=== PATIENT | male | born 1985 ===

== ENCOUNTER 2017-08-27 16:18 | Inpatient (IN) | payer OTHER ==
[2017-08-27] MEDS ORDERED: HYDROmorphone 1 MG/ML Syringe IVPUSH ONE ×3 (16:41→20:20)
[2017-08-27] MEDS ORDERED: Sodium Chloride 0.9% 10 ML Syringe FLUSH PRN (16:41)
--- NOTE | 2017-08-27 16:43 | EDM.PDOC ---
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 Injury occurred about 2 hours prior to arrival ER. Patient reports that he is working on [employer]. This occurred at work. He estimates he fell approximately 10 feet. Currently complaining of pain to the left lateral chest and left upper back. States he has difficulty breathing and pain with deep respirations. No head trauma. He was wearing a hard hat at the time. No syncope, vision changes, nausea, vomiting, neck pain, dizziness or lightheadedness. No pain to the arms or legs. Onset: Today Location: Reports: Chest, Abdomen. Denies: Head, Neck Left Thoracic Pain Score (Numeric/FACES): 10 - Related Data Allergies Allergy/AdvReac Type Severity Reaction Status Date / Time No Known Allergies Allergy Verified 08/27/17 16:29 Home Meds: Home Meds . [No Known Home Meds] 08/27/17 [History] Past Medical History - Past Surgical History Musculoskeletal Surgical History: Reports: Shoulder Surgery Social & Family History - Tobacco Use Smoking Status *Q: Current Every Day Smoker Years of Tobacco use: 10 Packs/Tins Daily: 0.5 - Caffeine Use Caffeine Use: Reports: None - Recreational Drug Use Recreational Drug Use: No ED ROS GENERAL - Review of Systems Review Of Systems: See Below HEENT: Denies: Vision Change Respiratory: Reports: Shortness of Breath Cardiovascular: Reports: Chest Pain (left lateral chest) GI/Abdominal: Reports: Abdominal Pain (left upper abdmone). Denies: Nausea, Vomiting Musculoskeletal: Reports: Back Pain. Denies: Neck Pain, Arm Pain, Leg Pain Skin: Denies: Bruising, Wound Neurological: Denies: Headache, Syncope ED EXAM, GENERAL - Physical Exam Exam: See Below Exam Limited By: No Limitations General Appearance: Alert, WD/WN, Mild Distress Eye Exam: Bilateral Eye: PERRL Ears: Normal External Exam Nose: Normal Inspection Throat/Mouth: Normal Inspection, Normal Lips, Normal Voice, No Airway Compromise Head: Atraumatic, Normocephalic Neck: Normal Inspection, Supple, Non-Tender, Full Range of Motion Respiratory/Chest: Decreased Breath Sounds (left lower lung base), Splinting Cardiovascular: Normal Peripheral Pulses, Regular Rate, Rhythm, No Murmur GI/Abdominal: Soft, Tender (LUQ) Extremities: Normal Inspection, Normal Range of Motion Neurological: Alert, Oriented, Normal Cognition, Normal Gait Psychiatric: Normal Affect, Normal Mood Skin Exam: Warm, Dry, Normal Color. No: Ecchymosis, Wound/Incision EKG INTERPRETATION EKG Date: 08/27/17 Time: 18:05 Rhythm: NSR Rate (Beats/Min): 74 [place]: Normal P-Wave: Present QRS: Normal ST-T: Normal QT: Normal EKG Interpretation Comments: NSR at [address] elevation in V2 and II bengin early repolarization pattern. Reviewed by myself and Dr. Oreilly. Course - Vital Signs Last Recorded V/S: Last Vital Signs Temp 37.2 C 08/27/17 21:11 Pulse 68 08/27/17 21:11 Resp 16 08/27/17 21:11 BP 128/75 08/27/17 21:11 Pulse Ox 95 08/27/17 21:11 - Orders/Labs/Meds Orders: Active Orders 24 hr Category Date Time Status EKG 12 Lead [EKG Documentation Completion] [RC] STAT Care 08/27/17 17:52 Active Peripheral IV Care [RC] Q2HR Care 08/27/17 16:41 Active Chest Abdomen Pelvis w Cont [CT] Stat Exams 08/27/17 16:41 Taken Sodium Chloride 0.9% [Saline Flush] Med 08/27/17 16:41 Active 10 ml FLUSH ASDIRECTED PRN Peripheral IV Insertion Adult [OM.PC] Routine Oth 08/27/17 16:40 Ordered Medication Orders Hydromorphone HCl (Dilaudid) 0.5 mg IVPUSH Q1H PRN PRN Reason: Pain Last Admin: 08/27/17 22:56 Dose: 0.5 mg Admin: 08/27/17 21:40 Dose: 0.5 mg Dextrose/Lactated Ringer's (Dextrose 5%-Lactated Ringers) 1,000 mls @ 100 mls/ hr IV ASDIRECTED RUFINA Last Admin: 08/27/17 21:39 Dose: 100 mls/hr Sodium Chloride (Saline Flush) 10 ml FLUSH ASDIRECTED PRN PRN Reason: Keep Vein Open Last Admin: 08/27/17 16:54 Dose: 10 ml Labs: Laboratory Tests 08/27/17 08/27/17 08/27/17 Range/Units 16:50 16:50 16:50 WBC 16.33 H (4.23-9.07) K/mm3 RBC 4.97 (4.63-6.08) M/mm3 Hgb 14.5 (13.7-17.5) gm/L Hct 44.0 (40.1-51.0) % MCV 88.5 (79.0-92.2) fl MCH 29.2 (25.7-32.2) pg MCHC 33.0 (32.2-35.5) g/dl RDW Std Deviation 44.2 H (35.1-43.9) fL Plt Count 291 (163-337) K/mm3 MPV 9.9 (9.4-12.3) fl Neut % (Auto) 78.9 H (34.0-67.9) % Lymph % (Auto) 11.2 L (21.8-53.1) % [place] % (Auto) 9.1 (5.3-12.2) % Eos % (Auto) 0.2 L (0.8-7.0) Baso % (Auto) 0.2 (0.1-1.2) % Neut # (Auto) 12.89 H (1.78-5.38) K/mm3 Lymph # (Auto) 1.83 (1.32-3.57) K/mm3 [place] # (Auto) 1.49 H (0.30-0.82) K/mm3 Eos # (Auto) 0.03 L (0.04-0.54) K/mm3 Baso # (Auto) 0.03 (0.01-0.08) K/mm3 PT 10.0 (8.0-13.0) SECONDS INR 0.92 APTT 22 (22-36) SECONDS Sodium 137 (136-145) mEq/L Potassium 3.7 (3.5-5.1) mEq/L Chloride 102 (98-107) mEq/L Carbon Dioxide 25 (21-32) mEq/L Anion Gap 13.7 (5-15) BUN 20 H (7-18) mg/dL Creatinine 1.2 (0.7-1.3) mg/dL Est Cr Clr Drug Dosing 103.70 mL/min Estimated GFR (MDRD) > 60 (>60) mL/min BUN/Creatinine Ratio 16.7 (14-18) Glucose 121 H (74-106) mg/dL Calcium 9.6 (8.5-10.1) mg/dL Total Bilirubin 0.6 (0.2-1.0) mg/dL AST 38 H (15-37) U/L ALT 59 (16-63) U/L Alkaline Phosphatase 61 (46-116) U/L Total Protein 8.4 H (6.4-8.2) g/dl Albumin 4.3 (3.4-5.0) g/dl Globulin 4.1 gm/dL Albumin/Globulin Ratio 1.1 (1-2) Lipase 145 (73-393) U/L Urine Color (Yellow) Urine Appearance (Clear) Urine pH (5.0-8.0) Ur Specific [place] (1.005-1.030) Urine Protein (Negative) Urine Glucose (UA) (Negative) Urine Ketones (Negative) Urine Occult Blood (Negative) Urine Nitrite (Negative) Urine Bilirubin (Negative) Urine Urobilinogen (0.2-1.0) Ur Leukocyte Esterase (Negative) 08/27/17 Range/Units 18:30 WBC (4.23-9.07) K/mm3 RBC (4.63-6.08) M/mm3 Hgb (13.7-17.5) gm/L Hct (40.1-51.0) % MCV (79.0-92.2) fl MCH (25.7-32.2) pg MCHC (32.2-35.5) g/dl RDW Std Deviation (35.1-43.9) fL Plt Count (163-337) K/mm3 MPV (9.4-12.3) fl Neut % (Auto) (34.0-67.9) % Lymph % (Auto) (21.8-53.1) % [place] % (Auto) (5.3-12.2) % Eos % (Auto) (0.8-7.0) Baso % (Auto) (0.1-1.2) % Neut # (Auto) (1.78-5.38) K/mm3 Lymph # (Auto) (1.32-3.57) K/mm3 [place] # (Auto) (0.30-0.82) K/mm3 Eos # (Auto) (0.04-0.54) K/mm3 Baso # (Auto) (0.01-0.08) K/mm3 PT (8.0-13.0) SECONDS INR APTT (22-36) SECONDS Sodium (136-145) mEq/L Potassium (3.5-5.1) mEq/L Chloride (98-107) mEq/L Carbon Dioxide (21-32) mEq/L Anion Gap (5-15) BUN (7-18) mg/dL Creatinine (0.7-1.3) mg/dL Est Cr Clr Drug Dosing mL/min Estimated GFR (MDRD) (>60) mL/min BUN/Creatinine Ratio (14-18) Glucose (74-106) mg/dL Calcium (8.5-10.1) mg/dL Total Bilirubin (0.2-1.0) mg/dL AST (15-37) U/L ALT (16-63) U/L Alkaline Phosphatase (46-116) U/L Total Protein (6.4-8.2) g/dl Albumin (3.4-5.0) g/dl Globulin gm/dL Albumin/Globulin Ratio (1-2) Lipase (73-393) U/L Urine Color Yellow (Yellow) Urine Appearance Clear (Clear) Urine pH 5.5 (5.0-8.0) Ur Specific [place] 1.020 (1.005-1.030) Urine Protein Negative (Negative) Urine Glucose (UA) Negative (Negative) Urine Ketones Negative (Negative) Urine Occult Blood Negative (Negative) Urine Nitrite Negative (Negative) Urine Bilirubin Negative (Negative) Urine Urobilinogen 0.2 (0.2-1.0) Ur Leukocyte Esterase Negative (Negative) Meds: Medications Generic Name Dose Route Start Last Admin Trade Name Freq PRN Reason Stop Dose Admin Hydromorphone HCl 0.5 mg 08/27/17 21:31 08/27/17 22:56 Dilaudid IVPUSH 0.5 mg Q1H PRN Administration Pain Dextrose/Lactated Ringer's 1,000 mls @ 100 mls/hr 08/27/17 20:45 08/27/17 21: 39 Dextrose 5%-Lactated Ringers IV 100 mls/hr ASDIRECTED RUFINA Administration Sodium Chloride 10 ml 08/27/17 16:41 08/27/17 16:54 Saline Flush FLUSH 10 ml ASDIRECTED PRN Administration Keep Vein Open Discontinued Medications Generic Name Dose Route Start Last Admin Trade Name Freq PRN Reason Stop Dose Admin Hydromorphone HCl 1 mg 08/27/17 16:41 08/27/17 16:53 Dilaudid IVPUSH 08/27/17 16:42 1 mg ONETIME ONE Administration Hydromorphone HCl 1 mg 08/27/17 18:53 08/27/17 19:02 Dilaudid IVPUSH 08/27/17 18:54 1 mg ONETIME ONE Administration Hydromorphone HCl 0.5 mg 08/27/17 20:20 08/27/17 20:23 Dilaudid IVPUSH 08/27/17 20:21 0.5 mg ONETIME ONE Administration Hydromorphone HCl 1 mg 08/27/17 20:40 Dilaudid IVPUSH Q2H PRN Pain Hydromorphone HCl Confirm 08/27/17 21:35 08/27/17 21:45 Dilaudid Administered 08/27/17 21:36 Not Given Dose 0.5 mg .ROUTE .STK-MED ONE Iopamidol 125 ml 08/27/17 16:46 08/27/17 17:11 Isovue-300 (61%) IVPUSH 08/27/17 16:47 125 ml ONETIME ONE Administration Sodium Chloride 10 ml 08/27/17 16:46 08/27/17 17:12 Saline Flush FLUSH 08/27/17 16:47 10 ml ONETIME ONE Administration - Radiology Interpretation Free Text/Narrative:: CT of the chest with IV contrast impression per vrad: 1. 1. Moderate sized left hemopneumothorax measuring 12 mm 2. Atelectasis/contusion of the posterior lateral lingula and portions of the left lower lobe. 3. Nondisplaced fractures of the left seventh through ninth ribs. Segmental fractures of the left ribs [address] of the abdomen with IV contrast impression per vrad: no acute intraabdominal findings. CT Results Date: 08/27/17 - Re-Assessments/Exams Free Text/Narrative Re-Assessment/Exam: 08/27/17 20:[address] and lab results with the patient. I spoke with our surgeon ent surgeon Dr. Galvez. Recommended a higher level of care. Discussed with the patient. Did not have a preference, [place] or [facility] in [place]. Discussed the case with Dr. Harrison, ER physician, and Dr. Frias, surgeon, at [facility]. Did not feel a transfer was necessary. [place] the patient could be safely managed here in [place]. I had Dr. Oreilly come and evaluate the patient. Agrees patient needs admission. Agrees no chest tube is indicated at this time. Dr. Oreilly spoke with Dr. Galvez. Dr. Galvez has agreed to come and see the patient in the eR. Will plan on admitting the patient here. Departure - Departure Time of Disposition: 20:35 Disposition: Admitted As Inpatient 66 Condition: Serious Clinical Impression: Ribs, multiple fractures, Hemopneumothorax on left, Left pulmonary contusion - Discharge Information - My Orders Last 24 Hours: My Active Orders 08/27/17 16:40 Peripheral IV Insertion Adult [OM.PC] Routine 08/27/17 16:41 Peripheral IV Care [RC] Q2HR Chest Abdomen Pelvis w Cont [CT] Stat Sodium Chloride 0.9% [Saline Flush] 10 ml FLUSH ASDIRECTED PRN 08/27/17 17:52 EKG 12 Lead [EKG Documentation Completion] [RC] STAT - Assessment/Plan Last 24 Hours: My Active Orders 08/27/17 16:40 Peripheral IV Insertion Adult [OM.PC] Routine 08/27/17 16:41 Peripheral IV Care [RC] Q2HR Chest Abdomen Pelvis w Cont [CT] Stat Sodium Chloride 0.9% [Saline Flush] 10 ml FLUSH ASDIRECTED PRN 08/27/17 17:52 EKG 12 Lead [EKG Documentation Completion] [RC] STAT
[2017-08-27] MEDS ORDERED: Sodium Chloride 0.9% 10 ML Syringe FLUSH ONE (16:46)
[2017-08-27] MEDS ORDERED: Iopamidol 612 MG/ML 150 ML Bottle IVPUSH ONE (16:46)
[2017-08-27] MEDS ORDERED: HYDROmorphone 1 MG/ML Syringe IVPUSH PRN (20:40)
[2017-08-27] MEDS ORDERED: HYDROmorphone 0.5 MG/0.5 ML Syringe ONE (21:35)
[2017-08-27] MEDS: Dextrose 5%-Lactated Ringers 1,000 ML IV SCH (21:39)
[2017-08-27] MEDS: HYDROmorphone 0.5 MG/0.5 ML Syringe IVPUSH PRN ×2 (21:40→22:56)
[2017-08-28] MEDS: HYDROmorphone 0.5 MG/0.5 ML Syringe IVPUSH PRN ×15 (00:18→22:49)
[2017-08-28] MEDS: Dextrose 5%-Lactated Ringers 1,000 ML IV SCH ×2 (06:41→17:30)
[2017-08-28] MEDS: Ketorolac 30 MG/ML SDV IVPUSH SCH ×3 (06:43→18:57)
[2017-08-28] MEDS ORDERED: Pneumococcal Polyvalent-23 Vaccine 0.5 ML SDV IM ONE (08:34)
--- NOTE | 2017-08-28 08:51 | CR ---
Chest: Portable view of the chest was obtained. Comparison: Previous chest CT performed on 08/27/17. Chest CT showed a small pneumothorax on the left side. Small apical pneumothorax seen on current study on the left side. This is felt to be fairly stable from chest CT. Plate and screws noted affixing old right clavicle fracture. Minimal atelectasis is noted within the left lung base. Heart is slightly enlarged. Impression: 1. Small left apical pneumothorax is seen felt to be stable from prior chest CT. 2. Slight left basilar atelectasis and other incidental findings. Diagnostic code #3
[2017-08-28] MEDS ORDERED: Magnesium Hydroxide 400 MG/5 ML Susp 30 ML Cup PO PRN (19:30)
[2017-08-28] MEDS ORDERED: Bisacodyl 10 MG Supp RECTAL PRN (19:32)
--- NOTE | 2017-08-28 22:34 | HP ---
DATE OF ADMISSION: 08/27/2017 CHIEF COMPLAINT: Fall approximately 10 feet from scaffolding in the [employer]. HISTORY OF PRESENT ILLNESS: This 31-year-old male was brought to the emergency room actually in a pickup truck following a fall from approximately 10 feet. 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 He denies any loss of consciousness. Some bystanders quickly got him off the ground and got him into a pickup truck when he realized he was in lot of pain and brought him into the emergency room. The patient states that the fall was somewhat around 10 feet, which is essentially a trigger for the ATLS major trauma situations and the thought of transfer was entertained. However, as he was essentially seen in the emergency room and resuscitated with IV fluids and pain medication, it became apparent that his injuries were at that point not that severe. He did not evidently need transfer to a Trauma Center. The patient's complaints were that he did not have any pain in his head or neck. He did have pain in his left arm and his left chest, and most of his pain was posteriorly in the left chest. He denies any abdominal pain or any other long extremity pain. A CT scan of chest,abd, and pelvis was performed on the basis of his major trauma history, and this revealed no evidence in the lower neck of any fracture dislocation. The chest on the right side was perfectly normal. On the left, there are a small pneumothorax of minimal mL and a small amount of blood. There is also some contusion of the left lung. Abdominal CT is essentially perfectly normal. It is of interest to note that he does have a very obvious fracture of the midportion of the 7th rib laterally on the left side. The other fractures, etc., are not available since there has not been a dictation of the CT scans at this point. His abdominal CT was essentially unremarkable. Spleen was remarkably unscathed and the kidneys etc., and major vessels appear to be normal and small bowel and large bowel appear to be normal. No evidence of any bleeding intraperitoneally. Following evaluation and examination, the patient will be admitted to the hospital and I feel probably overnight because of the possibility of the enlargement of the pneumothorax, which is still quite fresh and development of other more problematic symptoms. ALLERGIES: He has no known allergies. CURRENT MEDICATIONS: He takes no medications. PAST MEDICAL HISTORY: General health has been good. PAST SURGICAL HISTORY: He has had a previous surgery on the right clavicle, and the hardware is visible on the chest x-ray. REVIEW OF SYSTEMS: Basically unremarkable and noncontributory, except for the pain, etc. He has no chronic illness. PHYSICAL EXAMINATION: GENERAL: Reveals a surprisingly alert, but obviously in pain patient. HEENT: Examination of the head and scalp does not reveal any injury or injury to the scalp or to the head. No hematomas. Eyes, ears, nose, and throat are within normal limits. No sign of any bleeding or limited function. Extraocular movements are satisfactory. NECK: Supple. He can move it in all directions. There is no swelling or crepitus. CHEST: Clear to auscultation. Breath sounds on the left are decreased. Right, the breath sounds are normal. HEART: Regular rhythm and no murmurs are heard. ABDOMEN: Soft with no tenderness and normal bowel sounds are present. GENITALIA: Unremarkable. No sign of any trauma. EXTREMITIES: Examination of his legs reveals full range of motion of the hip joints and knees with no pain, and he has good strength in all major muscle groups. NEUROLOGIC: He is alert and oriented to time, person, and place and has essentially normal neurologic examination to gross exam. ASSESSMENT: 1. At this point is fall, approximately 10 feet from a scaffolding or metallic ladder. 2. Fractured left ribs. 3. Hemopneumothorax. PLAN: The patient will be admitted for observation and further workup. His white count is slightly elevated. His hemoglobin is good and 14.7. He has basically a normal differential, his chemistries are fine. He will be admitted to the intensive care unit at least overnight. AAYUSH /[id number] JOSÉ MIGUEL
[2017-08-29] MEDS: Ketorolac 30 MG/ML SDV IVPUSH SCH ×4 (00:07→19:26)
[2017-08-29] MEDS: HYDROmorphone 0.5 MG/0.5 ML Syringe IVPUSH PRN ×3 (02:30→09:55)
[2017-08-29] MEDS: Dextrose 5%-Lactated Ringers 1,000 ML IV SCH (03:46)
[2017-08-29] MEDS: Polyethylene Glycol 3350 Powder 17 GM Packet PO SCH (11:31)
--- NOTE | 2017-08-29 11:43 | CR ---
Left elbow: 2 views of the left elbow were obtained. Comparison: No previous study. Joint spaces are preserved. No fracture or other abnormality is seen. Impression: 1. No abnormality is identified on 2 view left elbow study. Diagnostic code #1
--- NOTE | 2017-08-29 11:43 | CR ---
Chest: Portable view of the chest was obtained. Comparison: Previous chest x-ray 08/28/17. Slight atelectasis within the left lung base is noted. Lungs otherwise are clear. Small left apical pneumothorax is seen which is felt to be stable from previous exam. Heart size and mediastinum are within normal limits. Plate and screws are seen within the right clavicle. Impression: 1. Slight left basilar atelectasis. 2. Slight left apical pneumothorax similar to prior chest x-ray. 3. Other incidental findings. Diagnostic code #3
[2017-08-29] MEDS: Acetaminophen/oxyCODONE 325-5 MG Tab PO PRN ×3 (12:03→20:30)
--- NOTE | 2017-08-29 12:51 | CT ---
CT chest Technique: Multiple axial sections through the chest are obtained. Intravenous contrast was utilized. Comparison: No previous chest imaging. Findings: Mediastinum and hilar regions appear within normal limits. No pericardial thickening is seen. Small left sided pneumothorax is seen. Minimal atelectasis seen posteriorly within the left lung. Lungs otherwise are clear. Fractures are seen within the seventh and eighth ribs laterally. Small amount of chest wall air is seen in this area of fractures. No additional rib fracture is appreciated. Thoracic spine shows the vertebral body heights to be maintained on the sagittal images. Impression: 1. Small left-sided pneumothorax. Two left-sided rib fractures. Small amount of air within the chest wall at the level of the 2 left-sided rib fractures. 2. Mild atelectasis seen posteriorly within the left lung base. 3. No additional abnormality identified on CT study of the chest. Diagnostic code #5 I agree with preliminary report issued by [facility] ([facility] report finalized on 08/27/17, 6:42 PM Central Time) CT abdomen and pelvis Technique: Multiple axial sections were obtained from above the dome of the diaphragm inferiorly through the pubic symphysis. Intravenous contrast was utilized. No oral contrast has been given. Comparison: No previous abdominal imaging. Findings: Liver shows no focal parenchymal abnormality. Spleen appears within normal limits. Gallbladder shows no calcified gallstones. Adrenal glands show no nodule. Kidneys show symmetric contrast enhancement without hydronephrosis or mass. Pancreas appears within normal limits. Aorta shows no aneurysmal dilatation. No retroperitoneal adenopathy is seen. No pelvic mass or adenopathy is identified. Delayed images show contrast within the distal ureters and within the bladder. No free fluid or inflammatory change is seen within the abdomen or within the pelvis. Appendix is seen which is normal. Bone window settings were reviewed which show the vertebral body heights to be maintained within the lumbar spine. Impression: 1. Nothing acute is identified on CT study of the abdomen and pelvis. Diagnostic code #1 I agree with preliminary report issued by [facility] ([facility] report finalized on 08/27/17, 6:42 PM Central Time)
[2017-08-29] MEDS ORDERED: Cyclobenzaprine 10 MG Tab PO PRN (17:45)
[2017-08-29] MEDS: Cyclobenzaprine 10 MG Tab PO PRN (22:08)
--- NOTE | 2017-08-29 22:16 | PN ---
DATE OF SERVICE: 08/28/2017 Terence is now in his first day in the ICU. He is relatively comfortable. He is able to sit up on his own now. Still complains of pain in the left chest. Auscultation reveals decreased breath sounds on the left side and full ones on the right. He is obviously tender in the area of the fractures, and generally is stable without any problems. Blood pressure remains well. His hemoglobin is down a bit, but that is to be expected. This should be on the basis of dilution as well as maybe a slight amount of blood loss. His abdomen is soft. He is hungry and he is starting to eat. He is able to get up with assistance and is basically doing quite well. I would like to keep him in the unit at least overnight tonight and probably transfer him to the [facility] tomorrow. AAYUSH /[id number]
--- NOTE | 2017-08-29 22:31 | PN ---
DATE OF SERVICE: 08/29/2017 Terence continues to improve. He is able now to get in and out of the bed by himself. He has been moved to the floor. He has stable vital signs and basically complains of some muscular cramps, stiffness, soreness, and would like something for relaxation. We will give him Flexeril 10 mg t.i.d. Additionally, his pain control is almost there, but he will need occasionally 1 or 2 tablets every 4 hours of oxycodone. His bowels have moved, he is eating well, generally is very satisfactory, and hopefully, we will be able to discharge him tomorrow, we will see how he does. His chest findings remain the same, his x-ray is same as yesterday shows a small pneumothorax, some mild contusion, a little bit of blood in the left gutter, and he has had a bowel movement today. AAYUSH /[id number]
[2017-08-30] MEDS: Ketorolac 30 MG/ML SDV IVPUSH SCH ×2 (01:09→06:53)
[2017-08-30] MEDS: Acetaminophen/oxyCODONE 325-5 MG Tab PO PRN ×3 (01:09→09:52)
[2017-08-30] MEDS: Cyclobenzaprine 10 MG Tab PO PRN (06:53)
[2017-08-30 08:37] VITALS: BP 113/44
[2017-08-30] MEDS: Polyethylene Glycol 3350 Powder 17 GM Packet PO SCH (09:21)
--- NOTE | 2017-08-31 03:44 | DISCH ---
ADMISSION DATE: 08/27/2017 DISCHARGE DATE: 08/30/2017 DISCHARGE DIAGNOSES: 1. 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 2. Fractured 7th and 8th ribs laterally, left chest. 3. Hemopneumothorax, resolving. OPERATION: None. HOSPITAL COURSE: This 31-year-old male working in the [employer] was about 10 feet above the ground in some form of scaffolding when he lost his footing and fell to the ground. He landed on his left side, mainly his elbow pinned between the ground and his chest. He complained of severe pain in his left chest and his colleagues got him into the pickup truck and brought him straight to the hospital. In the emergency room, his vital signs were stable. His blood, hemogram, and other studies were all essentially normal. He underwent a chest, abdomen, and pelvis CT. Abdomen and pelvis found no injury to the spleen or viscera in the abdominal cavity. Chest revealed the right lung field was normal. Left showed a mild pulmonary contusion, a small rim of air in the left hemithorax as well as a small amount of blood. Because of the mechanism of injury, thoughts were considered regarding a transfer to a higher level trauma center because of the usual accompanying other injuries following this type of mechanism. The patient, however, appeared to be stable and decided that he could be kept here and was placed in the ICU where he was observed over the next 3 days. He was then transferred to the regular floor yesterday. He is up and about walking, doing well. His pain is well controlled on Percocet 1 or 2 every 4 hours and he will start some ibuprofen and also was given 10 mg of Flexeril to be taken every 8 hours for 1 week. He will follow up with Dr. Anaya in about 1 week and he should not plan on working for the next 3 weeks. FINAL DIAGNOSIS:Fall 10 feet DISCHARGE MEDICATIONS: Flexeril 10 mg po tid Percocet 5/325. 1 or 2 po q4h prn pain DIET: Regular ACTIVITY: No work for 3 weeks, light duty 4-6 weeks from injury FOLLOW-UP: Dr. Anaya, 1week CONDITION ON DISCHARGE:Good MMODAL /[id number] [facility]
== END 2017-08-30 11:25 | disposition home or self-care (01) | DRG 200 ==
LOC: JD.ED 16:18 → JD.ICU 20:12 → JD.MS 08-29 14:43
PROVIDERS: ADMIT Surgery; ATTEND Surgery
DX: S27.2XXA Traumatic hemopneumothorax, initial encounter (principal); S22.42XA Multiple fractures of ribs, left side, initial encounter for closed fracture; W17.89XA Other fall from one level to another, initial encounter; Y99.8 Other external cause status; F17.210 Nicotine dependence, cigarettes, uncomplicated
CPT/HCPCS: 36415; 71010; 71010-26; 71260; 71260-26; 73070-26-LT; 73070-LT; 74177; 74177-26; 80053; 81003; 83690; 85025; 85610; 85730; 93005; 93010; 96374; 96376; 97116-GP; 97161-GP; 97165-GO; 97530-GP; 99285; 99285-25; A9270-GY; J1170; J1885; J7042; J7050; Q9967